=== PATIENT | female | born 1990 | race Caucasian/White ===

== ENCOUNTER 2021-08-27 17:30 | Emergency (ER) | payer OTHER ==
[~2021-08-27 17:30] MED LIST: COLACE 100MG C100 MG PO; LEVAQUIN750 MG PO; NAPROSYN500 MG PO; PERCOCET 5-3251 EACH PO; ZOFRAN4 MG PO
[2021-08-27 19:24] LABS: HEMOGLOBIN 12.5 gm/dl (12.3-15.3); RED BLOOD COUNT 4.15 M/UL (4.00-5.10); WHITE BLOOD COUNT 8.8 K/UL (4.5-11.0)
[2021-08-27 19:45] LABS: BUN/CREATININE RATIO 13 (0-10)
[2021-08-27] MEDS ORDERED: ENDOCET 5-3251 EACH PO (22:45)
[2021-08-27] MEDS ORDERED: CEPHALEXIN500 M1 PO (22:51)
[2021-08-27] MEDS ORDERED: FLOMAX 0.4 MG0.4 MG PO (22:51)
[2021-08-27] MEDS ORDERED: ONDANSETRON ODT4 MG SL (22:51)
[2021-08-27] MEDS ORDERED: TORADOL 10 MG T10 MG PO (22:51)
== END 2021-08-27 23:00 | disposition home or self-care (01) ==
LOC: ER1 17:30
PROVIDERS: Student in an Organized Health Care Education/Training Program
DX: N13.2 Hydronephrosis with renal and ureteral calculous obstruction (principal); N39.0 Urinary tract infection, site not specified; Z87.440 Personal history of urinary (tract) infections
CPT/HCPCS: 80053; 81001; 83690; 84703; 85025; 87086; 96374; 99284; J1885